=== PATIENT | male | born 1980 | race American Indian/Alaskan Native ===

== ENCOUNTER 2017-12-16 02:06 | Emergency (ER) | payer SELFPAY ==
[2017-12-16] MEDS ORDERED: NORCO 10/325 PO ONE (04:45)
[2017-12-16] MEDS ORDERED: BOOSTRIX IM ONE (04:45)
[2017-12-16] MEDS ORDERED: BACTRIM DS PO ONE (04:45)
--- NOTE | 2017-12-16 04:45 | Emergency Department Report ---
Abscess Boil HPI - HPI Duration: 1 Day Location: Lower Extremity (left thigh) Severity: Moderate History: Yes Pain (10/10 to left thigh a can and worse with movement.), Yes Insect Bite (patient reports that something bit him but he is not sure what it was), No Fever, No Purulent Drainage, No Numbness, No Foreign Body, No Previous History HPI: This is a 37-year-old male patient who reports that he was bitten by an insect but not sure what it was. He said this happened yesterday and his left thigh is red and swollen and painful at 10 out of 10. Pain is throbbing and worse with movement. Pain is constant. Excess abated by touch and movement and no alleviating factor. No medication taken. He said he try to keep the area clean and cleansed with peroxide. He reports redness and swelling. Tetanus vaccine is greater than 5 years. Denies any fever or chills. Denies any nausea or vomiting. Pain is localized to affected area to left thigh. Denies any drainage. No similar incident in the past. Denies any medical history. <ANITA ANTONIO - Last Filed: 12/16/17 05:37> <JANA AGARWAL - Last Filed: 12/16/17 17:01> - HPI Chief Complaint: Animal Bite Stated Complaint: INSECT BITE LEFT LEG Time Seen by Provider: 12/16/17 03:56 Home Medications: Previous Rx's Medication Instructions Recorded Last Taken Type Acetaminophen/Codeine [Tylenol 1 tab PO Q6H PRN #12 tab 12/16/17 Unknown Rx /Codeine # 3 tab] Ibuprofen [Motrin] 600 mg PO Q8H PRN #15 tablet 12/16/17 Unknown Rx Sulfamethoxazole/Trimethoprim 1 each PO BID 10 Days #20 tablet 12/16/17 Unknown Rx [Bactrim DS TAB] Allergies/Adverse Reactions: Allergies Allergy/AdvReac Type Severity Reaction Status Date / Time No Known Allergies Allergy Verified 12/16/17 02:31 ED Review of Systems ROS: Stated complaint: INSECT BITE LEFT LEG Other details as noted in HPI Constitutional: denies: chills, fever ENT: denies: throat pain Respiratory: denies: cough, shortness of breath, SOB with exertion, SOB at rest , stridor, wheezing Cardiovascular: denies: chest pain, palpitations, edema, syncope Gastrointestinal: denies: nausea, vomiting Musculoskeletal: arthralgia. denies: back pain, joint swelling, myalgia Skin: rash, other (reports insect bite to left thigh redness and swelling). denies: lesions, pruritus Neurological: denies: headache, weakness, numbness, paresthesias, abnormal gait <ANITA ANTONIO - Last Filed: 12/16/17 05:37> ROS: Stated complaint: INSECT BITE LEFT LEG Other details as noted in HPI <JANA AGARWAL - Last Filed: 12/16/17 17:01> ED Past Medical Hx - Past Medical History Previous Medical History?: No - Surgical History Past Surgical History?: No - Family History Family history: no significant - Social History Smoking Status: Current Every Day Smoker Substance Use Type: Alcohol <ANITA ANTONIO - Last Filed: 12/16/17 05:37> <JANA AGARWAL - Last Filed: 12/16/17 17:01> - Medications Home Medications: Home Medications Medication Instructions Recorded Confirmed Last Taken Type Acetaminophen/Codeine [Tylenol 1 tab PO Q6H PRN #12 tab 12/16/17 Unknown Rx /Codeine # 3 tab] Ibuprofen [Motrin] 600 mg PO Q8H PRN #15 tablet 12/16/17 Unknown Rx Sulfamethoxazole/Trimethoprim 1 each PO BID 10 Days #20 tablet 12/16/17 Unknown Rx [Bactrim DS TAB] ED Abscess Boil Physical Exam - Exam General: Vital signs noted. No distress. Alert and acting appropriately. This is a 37-year-old male well-nourished well-developed in no acute distress. Nontoxic in appearance Front/Back of Body, Lg (Color): 1 - 3.5 x 3 cm area to lateral outer left thigh. Located medially. Tender to palpate with erythema. Positive induration and mild fluctuance. Noted small opening to Center of induration No stinger noted. Center without any drainage. No necrotic tissue Size: 3 cm (3 .5 x 3 cm) Exam: Yes Tenderness (left outer lateral mid thigh), Yes Fluctuance (the most fluctuance), Yes Surrounding Cellulites/Erythema (3.5x3 cm), Yes Normal Neurologic Exam (alert and oriented 3, GCS of 15, normal gait.), Yes Normal Circulation (No cce. + 2 pulses in all extremities, no neurovascular compromise. Patient with cellulitis and abscess to left thigh.), No Lymphangitis, No Crepitation, No Heart Murmur (S1, S2. Regular rate and rhythm) Exam: Lungs: Clear to auscultation bilaterally, no rhonchi wheezes or rales. Mouth: Tongue is normal, moist, uvula midline and oral airways patent. No pharyngeal erythema or exudate. Psych: Normal mood and behavior. Neck: Supple , full range of motion and no lymphadenopathy. Lymphs: No palpable lymph node to groin area which is closest to air if infection. <ANITA ANTONIO - Last Filed: 12/16/17 05:37> - Exam General: Vital signs noted. No distress. Alert and acting appropriately. <JANA AGARWAL - Last Filed: 12/16/17 17:01> I & D Note - I & D Note I & D Note: Incision and drainage procedure. Left thigh abscess cellulitic area transit iodine followed by normal saline. 4 mL of 2% lidocaine without epi injected in area of abscess. #11 blade scalpel used to make 0.25 cm incision to site. Area explored with forceps and small amount of pus expressed from side. Abscesses mostly indurated with small amount of fluctuance therefore iodoform packing place to incision and sterile dry dressing placed inside. Patient updated on his tetanus vaccine. He tolerated procedure well <ANITA ANTONIO - Last Filed: 12/16/17 05:37> ED Course Vital Signs 12/16/17 02:31 Temperature 98.8 F Pulse Rate 83 Respiratory 18 Rate Blood Pressure 148/91 O2 Sat by Pulse 99 Oximetry - Reevaluation(s) Reevaluation #1: 12/16/17 05:24 Patient given 5/325 2 tablets, Bactrim DS 1 tablet and Boostrix 0.5 mL IM in emergency room. Pain is controlled <ANITA ANTONIO - Last Filed: 12/16/17 05:37> Vital Signs 07/07/0512/16/17 12/16/17 02:31 05:02 05:11 Temperature 98.8 F Pulse Rate 83 80 Respiratory 18 18 18 Rate Blood Pressure 148/91 Blood Pressure 145/90 [Right] O2 Sat by Pulse 99 98 Oximetry <JANA AGARWAL - Last Filed: 12/16/17 17:01> Critical care attestation.: If time is entered above; I have spent that time in minutes in the direct care of this critically ill patient, excluding procedure time. <ANITA ANTONIO - Last Filed: 12/16/17 05:37> Critical care attestation.: If time is entered above; I have spent that time in minutes in the direct care of this critically ill patient, excluding procedure time. <JANA AGARWAL - Last Filed: 12/16/17 17:01> ED Medical Decision Making - Medical Decision Making ED course: This is a 37-year-old male here presenting to the emergency room so that he was bit by an insect yesterday but he was not sure it kind of insect it was. He said he developed red, painful, swollen area to his left thigh without any drainage. Tetanus vaccine is not up-to-date and he is here to be evaluated. Patient said he cleaned the area but he did not take anything for pain prior to coming to the emergency room. Patient seen by myself and examined and found to have today to area of cellulitis, indurated area with minimal fluctuance. Tender to palpate to left thigh on the lateral. See procedure note for incision and drainage of abscess. Patient given information and diagnosis and his pain is better. A/P 1.Abscess and cellulitis left thigh and given Bactrim DS one tablet 1 , [place] 5 /325 2 tablets by mouth and booster 0.5 mL injection and emergency room without any adverse reaction. be sent home on Bactrim DS, Tylenol No. 3 and Motrin 2.Encounter for incision and drainage of abscess-abscess to right groin drained. Please see procedure note for detail.Patient to return in 4 days to have packing removed. 3: Inset bite-stable. Unknown insect. Tetanus vaccine is updated PT educated on medication, procedure, treatment plan, return to emergency room for removal of packing, applying heat to affected area in diagnosis and she voiced understanding. Patient discharged home in stable condition to return to the hospital 4 days to remove packing. I discussed with him that if his symptoms worsen to include fever, chills, increased redness and swelling to side, increase pain, increase in drainage that cannot be controlled, increased heart rate and weakness to return to the emergency room. Patient to follow-up with her primary care physician and 2-3 days. He voiced understanding of discharge instruction and discharged home in stable condition. He is vital signs are stable and she is afebrile and nontoxic in appearance. Pain is better after drainage. Discharged home prescription for Motrin, Bactrim DS and Tylenol 3. - Differential Diagnosis abscess, cellulitis, simple inset bite <ANITA ANTONIO - Last Filed: 12/16/17 05:37> - Medical Decision Making I did not see or evaluate the patient. I was available for consultation the entire time the patient was in the ER. Hank Agarwal MD <JANA AGARWAL - Last Filed: 12/16/17 17:01> ED Disposition Is pt being admited?: No Does the pt Need Aspirin: No <ANITA ANTONIO - Last Filed: 12/16/17 05:37> <JANA AGARWAL - Last Filed: 12/16/17 17:01> Disposition: DC-01 TO HOME OR SELFCARE Condition: Stable Instructions: Cellulitis (ED), Insect Bite or Sting (ED), Abscess Incision and Drainage (ED) Additional Instructions: Please see discharge instruction in acute wound care Apply warm compresses to affected area 4 times a day to facilitate then and increased drainage return to emergency room in 4 days for removal of packing Keep affected area clean and dry Take Tylenol 3 for severe pain and please do not drive or operate heavy machinery while taking this medication Motrin for mild to moderate pain and please take medication with food to prevent nausea or irritation to stomach lining Take Bactrim DS for infection Return to the emergency room if, he developed fever, chills, increased pain and drainage from site, nausea and vomited, increase in redness and/or weakness. Prescriptions: Acetaminophen/Codeine [Tylenol /Codeine # 3 tab] 1 tab PO Q6H PRN #12 tab PRN Reason: severe pain Ibuprofen [Motrin] 600 mg PO Q8H PRN #15 tablet PRN Reason: mild to moderate pain Sulfamethoxazole/Trimethoprim [Bactrim DS TAB] 1 each PO BID 10 Days #20 tablet Referrals: PRIMARY CARE, [Primary Care Provider] - 12/18/17 return to, emergency room and 4 days [Other] - 12/20/17 (For removal of packing and) [facility] [Outside] - 12/18/17 Forms: Work/School Release Form(ED)
[2017-12-16] MEDS ORDERED: XYLOCAINE 2% INFILTRATI ONE (04:56)
[2017-12-16 05:12] VITALS: BP 145/90
== END 2017-12-16 06:21 | disposition home or self-care (01) ==
LOC: ED 02:06
DX: S70.362A Insect bite (nonvenomous), left thigh, initial encounter (principal); L03.116 Cellulitis of left lower limb; L02.416 Cutaneous abscess of left lower limb; F17.200 Nicotine dependence, unspecified, uncomplicated; W57.XXXA Bitten or stung by nonvenomous insect and other nonvenomous arthropods, initial encounter; Y93.89 Activity, other specified; Y99.8 Other external cause status; Y92.89 Other specified places as the place of occurrence of the external cause
CPT/HCPCS: 90471; 90715